=== PATIENT | male | born 1950 | race Caucasian/White ===

== ENCOUNTER → 2018-01-01 | Outpatient (CLI) | payer OTHER, BC | END | disposition home or self-care (01) | LOC: C.PATHSPEC 18:04 | PROVIDERS: ATTEND Urology | DX: R97.20 Elevated prostate specific antigen [PSA] (principal) ==

== ENCOUNTER 2019-05-01 05:01 | Inpatient (IN) ==
--- NOTE | 2019-04-14 14:36 | PAT Medication Instructions ---
Medication Instructions Date of Service April 14, 2019 Home Medications aspirin [Aspirin Low Dose] 81 mg PO BID cholecalciferol (vitamin D3) [Vitamin D3] 1,000 unit PO DAILY fluticasone furoate-vilanterol [Breo Ellipta] 1 inh INHALATION DAILY irbesartan 150 mg PO QAM omega 2-olr-osv-fish oil [Fish Oil] 1 cap PO QAM thyroid (pork) [[place] Thyroid] 15 mg PO QAM thyroid (pork) [[place] Thyroid] 60 mg PO QAM ASK your prescriber and surgeon aspirin [Aspirin Low Dose] 81 mg PO BID STOP taking 2 weeks before surgery (or as soon as possible if surgery is within 2 weeks) omega 0-qno-zxi-fish oil [Fish Oil] 1 cap PO QAM DO NOT take the morning of surgery cholecalciferol (vitamin D3) [Vitamin D3] 1,000 unit PO DAILY irbesartan 150 mg PO QAM Take morning of surgery With a small sip of water, OTHERWISE NOTHING TO EAT OR DRINK AFTER MIDNIGHT: fluticasone furoate-vilanterol [Breo Ellipta] 1 inh INHALATION DAILY thyroid (pork) [[place] Thyroid] 15 mg PO QAM thyroid (pork) [[place] Thyroid] 60 mg PO QAM Other Notes If you have any questions please call us at [phone] or [phone] or [phone] or [phone]
--- NOTE | 2019-04-15 13:23 | Anesthesiology Consultation ---
Date of Service April 15, 2019 Assessment & Plan (1) Encounter for pre-operative examination: Preop EKG done 04/15/19 still unconfirmed at time of review. Will need to review confirmed EKG AM DOS. Chart Review Chart Review: Acceptable Risk for Surgery and Patient seen in Pre Admission Testing Teaching & Discussion Pre-Anesthesia Teaching/Discussion Notes: Instructed NPO after midnight before surgery,except medications with 15 cc of water. Medication instructions provid ed according to the PAT guidelines. History Surgery Operation Date: 05/01/19 07:30 Proposed Procedures p Robotic Laparoscopic Assisted Radical Retropubic Prostatectomy, Possible Open, Possible Pelvic Lymph Node Dissection, Possible Suprapubic Tube Placement - Humberto Perera II, DO Height/Weight Height: 6 ft 2 in Weight: 93.2 kg Allergies Allergy/AdvReac Type Severity Reaction Status Date / Time No Known Allergies Allergy Unverified 04/08/19 10:26 Medications Home Medications Medication Instructions Recorded Confirmed Last Taken aspirin [Aspirin Low Dose] 81 mg PO BID 04/08/19 04/08/19 Unknown cholecalciferol (vitamin D3) 1,000 unit PO DAILY 04/08/19 04/08/19 Unknown [Vitamin D3] fluticasone furoate-vilanterol 1 inh INHALATION DAILY 04/08/19 04/08/19 Unknown [Breo Ellipta] irbesartan 150 mg PO QAM 04/08/19 04/08/19 Unknown omega 2-cuq-guk-fish oil [Fish Oil] 1 cap PO QAM 04/08/19 04/08/19 Unknown thyroid (pork) [[place] Thyroid] 15 mg PO QAM 04/08/19 04/08/19 Unknown thyroid (pork) [[place] Thyroid] 60 mg PO QAM 04/08/19 04/08/19 Unknown Past Medical History Medical History Anxiety Hypertension Hypothyroidism Prostate cancer Exercise / Class Metabolic Activity II 4-5 Yardwork/Stairs/Walk up hill Past Family History Family History Brother FHx: lung cancer Past Surgical History Surgical History History of arthroscopy BILATERAL KNEES History of cataract surgery BILATERAL History of colonoscopy History of cystoscopy S/P wrist surgery LEFT Past Anesthesia History No Hx of Anesthesia Complications and No Family Hx of Anesthesia Complications History of PONV No Hx of PONV and No Hx of Motion Sickness Social History Smoking Status: Former smoker tobacco type: cigars Do You Dip or Chew Tobacco: No Smoking End Date: QUIT CIGARS 2016; H/O OCCASIONAL CIGARS Hx Alcohol Use: Yes Alcohol type: beer, wine and hard liquor alcohol intake frequency: 0-2 drinks per day (1-2 DRINKS/DAY) Hx Substance Use: Yes (CBD oil prn anxiety (advised to hold AM DOS)) Review of Systems Occasional reflux. Patient denies chest pain, shortness of breath, dyspnea on exertion, cough, wheezing, palpitations. Physical Exam Vital Signs VITALS BP 138/75 P 67 TEMP 97.9 SP02 97%RA RESP 20 PHYSICAL Full neck and c-spine range of motion. Full TMJ range of motion. TMD 3 finger breaths Mallampati Score 3 Dentition: missing molars Lungs: clear throughout to auscultation Cardiac: regular rate and rhythm, I/ systolic murmur Spine: normal Carotid arteries: negative bruit Extremities: no edema Testing Laboratory Results 04/15/19 13:39 04/15/19 13:39 Urine Color Yellow 04/15/19 Unknown Urine Appearance Clear (Clear) 04/15/19 Unknown Urine pH 5.0 (4.5-7.5) 04/15/19 Unknown Ur Specific [place] 1.022 (1.000-1.030) 04/15/19 Unknown Urine Protein Negative (Negative) 04/15/19 Unknown Urine Glucose (UA) Negative (Negative) 04/15/19 Unknown Urine Ketones Negative (Negative) 04/15/19 Unknown Urine Nitrite Negative (Negative) 04/15/19 Unknown Ur Leukocyte Esterase Negative (Negative) 04/15/19 Unknown Blood Type A Positive 04/15/19 13:39 Antibody Screen NEGATIVE 04/15/19 13:39 04/15/19 Unknown Urine Culture - Preliminary Urine,Clean Catch No growth - Less than 1,000 colonies/mL, Final report to follow. Electrocardiogram Date: 04/15/19 SB at 59bpm. Moderate voltage criteria for LVH, may be normal variant (unconfirmed) Chest X-Ray Date: 04/15/19 Findings: + NAD
--- NOTE | 2019-04-15 14:28 | XRay Report ---
XR chest Pre-admission PA/Lat CLINICAL HISTORY: Preoperative evaluation. COMPARISON STUDY: No previous studies for comparison. FINDINGS: Lung volumes are normal. Lungs are clear. There is no pneumothorax or pleural effusion. Car diac size is normal. Mediastinal contours are normal. There is no evidence for pulmonary edema. IMPRESSION: No acute cardiopulmonary findings. Electronically signed by: Alexis Arias M.D. 04/15/2019 2:26 PM
[2019-04-15 15:37] LABS: Basophils # (auto) 0.05 K/uL (0-0.2); Basophils % (auto) 1.2 %; Eosinophils # (auto) 0.12 K/uL (0-0.5); Eosinophils % (auto) 2.9 %; Hematocrit (blood only) 42.4 % (42-52); Hemoglobin 14.8 g/dL (14.0-18.0); Immature Granulocytes # (auto) 0.01 K/uL (0.00-0.02); Immature Granulocytes % (auto) 0.2 %; Lymphocytes # (auto) 1.04 K/uL (1.2-3.4); Lymphocytes % (auto) 24.9 %; Mean Corpuscular Hgb Conc 34.9 g/dL (32-36); Mean Corpuscular Volume 91.8 fL (80-100); Mean Platelet Volume 11.7 fL (7.4-10.4); Monocytes # (auto) 0.51 K/uL (0.11-0.59); Monocytes % (auto) 12.2 %; Neutrophils # (auto) 2.45 K/uL (1.4-6.5); Neutrophils % (auto) 58.6 %; Platelet Count 157 K/uL (130-400); RDW Coefficient of Variation 12.8 % (11.5-14.5); RDW Standard Deviation 42.6 fL (36.4-46.3); Red Blood Count 4.62 M/uL (4.7-6.1); White Blood Count 4.18 K/uL (4.8-10.8)
[2019-04-15 15:45] LABS: Appearance Urine Clear (Clear); Bilirubin Urine Negative (Negative); Blood Urine Negative (Negative); Color Urine Yellow; Glucose Urine UA Negative (Negative); Ketones Urine Negative (Negative); Leukocyte Esterase Urine Negative (Negative); Nitrite Urine Negative (Negative); Protein Urine Negative (Negative); Specific Gravity Urine 1.022 (1.000-1.030); Urobilinogen Urine Negative (Negative)
[2019-04-15 15:50] LABS: BUN Creatinine Ratio 18.1 (10-20); Calcium 9.3 mg/dl (8.5-10.1); Creatinine Clr Calc Pharmacy 86.5 ml/min; Est GFR (African American) 94.9; Est GFR (Non-African American) 81.9; Potassium 3.9 mmol/L (3.5-5.1)
[2019-05-01] MEDS ORDERED: LR 15ML/HR IV SCH ×2 (06:00)
[2019-05-01] MEDS ORDERED: CEFAZOLIN 2000MG 2,000 MG/15 ML SYR IV SCH (06:00)
[2019-05-01] MEDS ORDERED: HEPARIN SOD 5,000 UNIT/0.5 ML VIAL SQ SCH (06:00)
[2019-05-01] MEDS ORDERED: LR 500ML BOLUS IV SCH (06:00)
[2019-05-01] MEDS ORDERED: fentaNYL citrate 100 MCG/2 ML VIAL ONE (06:50)
[2019-05-01] MEDS ORDERED: MIDAZOLAM HCL 1 MG/ML 2ML VIAL ONE (06:50)
[2019-05-01] MEDS ORDERED: PROPOFOL IV EMULSION 10 MG/ML 20 ML VIAL IV ONE (06:50)
[2019-05-01] MEDS ORDERED: DEXAMETHASONE SOD INJ 4 MG/ML VIAL ONE (06:50)
[2019-05-01] MEDS ORDERED: ONDANSETRON INJ 2 MG/ML 2 ML VIAL ONE (06:50)
[2019-05-01] MEDS ORDERED: LIDOCAINE HCL 2% 2 ML VIAL/AMP(20MG/ML) INFIL ONE (06:50)
[2019-05-01] MEDS ORDERED: GLYCOPYRROLATE 0.2 MG/ML VIAL ONE (06:50)
[2019-05-01] MEDS ORDERED: ROCURONIUM BROMIDE 10 MG/ML 5 ML VIAL ONE (06:50)
[2019-05-01] MEDS ORDERED: NEOSTIGMINE METHYLSULFATE 5 MG/5 ML SYR ONE (06:50)
--- NOTE | 2019-05-01 06:59 | History & Physical Bridge Note ---
Date of Service May 01, 2019 History & Physical Bridge Note I have examined the patient, reviewed the History & Physical and in the interval since the performance of the History & Physical I have noted the following changes of clinical significance: no changes noted
[2019-05-01] MEDS ORDERED: BUPIVACAINE 0.5 % 5 MG/1 ML MPF 30ML VIAL ONE (07:13)
[2019-05-01] MEDS ORDERED: ePHEDrine sulfate 50 MG/ML AMP IV PRN (07:33)
[2019-05-01] MEDS ORDERED: ATROPINE SULFATE 0.1 MG/ML 10ML SYR IV PRN (07:33)
[2019-05-01] MEDS ORDERED: HYDROmorphone INJ 2 MG/ML SYR/VIAL IV PRN (07:33)
[2019-05-01] MEDS ORDERED: ePHEDrine sulfate 50 MG/ML SYR ONE (08:24)
[2019-05-01] MEDS ORDERED: SURGICEL ABSORB HEMOSTAT 2IN X 14IN TOP ONE (10:09)
[2019-05-01] MEDS ORDERED: KETOROLAC 30 MG/ML VIAL ONE (11:01)
--- NOTE | 2019-05-01 11:54 | Operative Report ---
Post Operative Report Pre & Post Diagnosis Operation Date: 05/01/19 07:30 Pre-Op Diagnosis: Prostatic Cancer Post-Op Diagnosis: Prostatic Cancer Procedure Operation Date: 05/01/19 07:30 Actual Procedures p Robotic Laparoscopic Assisted Radical Nerve Sparing Retropubic Prostatectomy - Humberto Perera II, DO Surgeon Humberto Perera II, DO [employer] Jocy HU Estimated Blood Loss 20 Findings Consistent with Post-Op Diagnosis Specimens Radical Prostate with vas segment and seminal vesicles Drains 18 Fr Silicon Catheter Anesthesia Type General Complications none Disposition Disposition: Recovery Room Indications Patient with 3+3 Prostate cancer in 3 cores. Decided to proceed with radical prostatectomy. Risks and benefits were discussed at length. Description of Procedure The patient was brought to the operative suite and placed under general endotracheal intubation anesthesia in the supine position. The patient was transferred to the dorsal lithotomy position. At this point, the patient prepped and draped in the usual sterile fashion and a timeout was completed. The correct procedure and patient were identified. Preoperative antibiotics of Ancef 2 grams had been given. LAUREN's and SCD's were placed on the patient's lower extremities. A catheter was placed using sterile technique. With the time out completed the patient was placed into Trendelenburg and the skin at the umbilicus was anesthetized. A small incision was made superior to the umbilicus. A Varess needle was placed and was aspirated and irrigated and found to have correct drop of fluid. The insufflation was attached and the abdomen was filled to 15mmhg. The robotic camera port was placed, followed by the camera, and then the abdominal cavity inspected. No concerning features were noted. At this point, the skin was marked for port placement and 8mm working ports were placed. The skin was anesthetized down to fascia and an approx 1cm incision was made to place the 3 x 8mm ports. A 10mm and 5 mm commercial lines account assistant ports were also placed in similar fashion under direct visualization. The patient was transferred into steep Trendelenburg position and the legs lowered. The robot was positioned and docked. The camera was placed and all trocars were positioned under direct visualization. MAYTE Husain was integral in port placement, camera utilization, and docking procedure. She remained in sterile attire and then proceeded to assist the remainder of the case. At this point, I transitioned to the robotic console. At this point, the sigmoid colon was mobilized superiorly and the pelvis assessed. Adhesions were freed to allow mobilization. Significant adhesions were noted from the colon to the side wall. The peritoneum in the midline was opened between rectum and bladder and the seminal vesicles exposed. These were dissected with blunt technique. The vas was clipped and cut and mobilized. Cautery was used to assist dissection avoiding the tissue posteriorly near the rectum. The lateral vesicles were clipped with a hemolock and all bleeding controlled. This was taken as inferior as possible from this position. The medial umbilical ligaments were then identified and the peritoneum directly lateral on the right followed by the left was opened. The tissues were bluntly dissected to free the bladder's lateral attachments. This was taken down to the pubic bone and exposed the endopelvic fascia bilaterally. The medial ligaments were cut and the bladder dropped. The tissues was dissected anterior to the prostate. The endopelvic fascia on each side was then opened and the lateral edges of the prostate dissected. The Dorsal venous complex of the prostate was dissected and assessed. A 2-0 PDS suture was used to ligate the vessels. A suspension stitch was used and clipped. Electrocautery was used to cut the anterior attachments, the puboprostatic ligaments, and venous tissues. The barraza was manipulated to better visual the bladder neck and dissection was taken using electrocautery. The bladder neck was opened and dissected from the prostate. The UO were identifed and dissection taken in a direction to avoid each side. The vas stump and seminal vesicles were exposed and used to assist in traction to dissect. The prostatic pedicles were better exposed. The posterior prostate was dissected. An attempt was made to limit cautery and utilize cold dissection of the lateral posterior prostate to attempt preservation of the neurovascular bundle bilaterally. Hemolock clips were utilized to clip the prostatic pedicle bilaterally. The dissection was taken to the apex of the prostate. The anterior prostate was released and the urethra exposed. Cold cutting was used to open the anterior portion and expose the catheter. This was removed and the urethra incised. The prostate was further freed and grasped and removed from the field. The entire dissection bed was inspected.Hemostatic agent Surgicel sheets were placed in the region. No areas of injury or bleeding was noted. Care was taken to examine the perirectal tissues. A probe was placed and no injuries or other issues were observed. The bladder neck and urethra were then approximated with a running barbed suture starting at the 5 o'clock position and moving to the 12 o'clock on each side. This was tied at the anterior portion. A leak test was completed without any evidence of issues. The entire dissection space was inspected one final time. No bleeding or injuries or areas of concern were noted. No tumor or other concerning features were noted. At this point, the robot was undocked and moved away from the patient. The patient was taken out of Trendelenberg. The port sites were all assessed laparoscopically. The endoscopic bag was moved into the midline port. The 10mm port site was closed with the Magdy Fong device. The other ports were assessed and no issues observed. The umbilical incision was opened further exposing fascia which was then opened in order to removed the prostate in the bag. The prostate was removed. A running PDS suture was used to close fascia. The skin at each site was closed with a running Monocryl suture. The area was cleaned and glue placed on each incision. The patient was cleaned and bandaged. The barraza was attached to drainage. The patient was further cleaned, aroused from anesthesia, and transferred to the pacu in stable condition having tolerated the procedure well with no complications. I was present and participated in all aspects of the procedure. MAYTE Husain was critical in the portions as mentioned above. She first assisted through the entire case. I attest to the content of the Intraoperative Record and any orders documented therein. Any exceptions are noted below.
[2019-05-01 12:14] LABS: Basophils # (auto) 0.01 K/uL (0-0.2); Basophils % (auto) 0.1 %; Eosinophils # (auto) 0.04 K/uL (0-0.5); Eosinophils % (auto) 0.4 %; Hemoglobin 13.5 g/dL (14.0-18.0); Immature Granulocytes # (auto) 0.03 K/uL (0.00-0.02); Immature Granulocytes % (auto) 0.3 %; Lymphocytes # (auto) 0.45 K/uL (1.2-3.4); Lymphocytes % (auto) 4.5 %; Mean Corpuscular Volume 93.5 fL (80-100); Mean Platelet Volume 10.7 fL (7.4-10.4); Monocytes # (auto) 0.17 K/uL (0.11-0.59); Monocytes % (auto) 1.7 %; Neutrophils # (auto) 9.26 K/uL (1.4-6.5); Platelet Count 130 K/uL (130-400); RDW Coefficient of Variation 12.9 % (11.5-14.5); RDW Standard Deviation 43.8 fL (36.4-46.3); Red Blood Count 4.28 M/uL (4.7-6.1); White Blood Count 9.96 K/uL (4.8-10.8)
[2019-05-01 12:26] LABS: Mean Corpuscular Hgb Conc 33.8 g/dL (32-36)
[2019-05-01 12:35] LABS: Creatinine Clr Calc Pharmacy 54.2 ml/min; Est GFR (African American) 52.1; Potassium 4.3 mmol/L (3.5-5.1)
[2019-05-01 12:36] LABS: BUN Creatinine Ratio 12.7 (10-20)
[2019-05-01 12:37] LABS: Calcium 8.6 mg/dl (8.5-10.1)
--- NOTE | 2019-05-01 13:24 | Anesthesiology Progress Note ---
Date of Service May 01, 2019 Anesthesia Post Procedure Vital Signs Vital Signs: Temp Pulse Pulse Resp BP Pulse Ox 05/01/19 15:23 36.5 C 88 18 121/67 95 05/01/19 14:20 92 H 17 159/91 H 97 05/01/19 13:55 36.8 C 79 17 136/87 94 05/01/19 13:20 36.3 C L 85 16 161/82 H 96 05/01/19 13:05 36.2 C L 88 18 158/87 H 96 05/01/19 12:55 86 20 160/86 H 95 05/01/19 12:45 76 18 136/74 100 05/01/19 12:35 67 16 121/63 98 05/01/19 12:25 71 16 143/87 H 97 05/01/19 12:15 73 16 142/83 H 100 05/01/19 12:05 76 16 156/94 H 100 05/01/19 11:56 36.0 C L 76 16 151/81 H 100 05/01/19 05:43 36.8 C 65 18 161/101 H 97 Transfer of Care Handoff Completed per policy Notes Mental Status: alert / awake / arousable Patient Amnestic to Procedure: Yes Nausea / Vomiting: adequately controlled Pain: adequately controlled Airway Patency, RR, SpO2: stable & adequate BP & HR: stable & adequate Hydration State: stable & adequate Anesthetic Complications: no major complications apparent and Pt Satisfied with anesthetic care
[2019-05-01] MEDS ORDERED: OXYCODONE HCL IR 5 MG TAB (IMMEDIATE RELEASE) PO PRN ×2 (13:48)
[2019-05-01] MEDS ORDERED: ONDANSETRON INJ 2 MG/ML 2 ML VIAL IV PRN (13:48)
[2019-05-01] MEDS ORDERED: MoRPHine SULFATE 4 MG/ML 1 ML CARP\\VIAL IV PRN (13:48)
[2019-05-01] MEDS ORDERED: ACETAMINOPHEN 1,000 MG/100 ML VIAL IV PRN (13:48)
[2019-05-01 14:49] LABS: INR 1.1 (0.9-1.1); Prothrombin Time 10.9 Seconds (9.0-12.0)
--- NOTE | 2019-05-01 16:41 | Anesthesia Procedure Note ---
Date of Service May 01, 2019 Anesthesia Post Epidural Note Vital Signs Vital Signs: Temp Pulse Resp BP Pulse Ox 36.5 C 88 18 121/67 95 05/01/19 15:23 05/01/19 15:23 05/01/19 15:23 05/01/19 15:23 05/01/19 15:23 Notes Mental Status: alert / awake / arousable Patient Amnestic to Procedure: Yes Nausea / Vomiting: adequately controlled Pain: adequately controlled Airway Patency, RR, SpO2: stable & adequate BP & HR: stable & adequate Hydration State: stable & adequate Anesthetic Complications: no major complications apparent and Pt Satisfied with anesthetic care
[2019-05-01] MEDS: LACTATED RINGER'S 1,000 ML IV SCH (17:26)
[2019-05-01] MEDS: CEFAZOLIN 2000MG 2,000 MG/15 ML SYR IV SCH (18:25)
[2019-05-01] MEDS: DOCUSATE SODIUM 100 MG CAP PO SCH (21:06)
[2019-05-01] MEDS: HEPARIN SOD 5,000 UNIT/0.5 ML VIAL SQ SCH (21:06)
[2019-05-01] MEDS: FAMOTIDINE 20 MG in SYRINGE 3 ML IV SCH (21:07)
[2019-05-02] MEDS: CEFAZOLIN 2000MG 2,000 MG/15 ML SYR IV SCH ×2 (00:33→12:06)
[2019-05-02] MEDS: LACTATED RINGER'S 1,000 ML IV SCH ×2 (03:13→12:15)
[2019-05-02 07:47] LABS: Basophils # (auto) 0.01 K/uL (0-0.2); Basophils % (auto) 0.1 %; Eosinophils # (auto) 0.01 K/uL (0-0.5); Eosinophils % (auto) 0.1 %; Hematocrit (blood only) 35.2 % (42-52); Immature Granulocytes # (auto) 0.01 K/uL (0.00-0.02); Immature Granulocytes % (auto) 0.1 %; Lymphocytes # (auto) 0.86 K/uL (1.2-3.4); Lymphocytes % (auto) 10.6 %; Mean Corpuscular Hgb Conc 34.1 g/dL (32-36); Mean Corpuscular Volume 92.6 fL (80-100); Mean Platelet Volume 11.2 fL (7.4-10.4); Monocytes # (auto) 0.79 K/uL (0.11-0.59); Monocytes % (auto) 9.7 %; Neutrophils # (auto) 6.44 K/uL (1.4-6.5); Neutrophils % (auto) 79.4 %; Platelet Count 139 K/uL (130-400); RDW Standard Deviation 43.9 fL (36.4-46.3); White Blood Count 8.12 K/uL (4.8-10.8)
[2019-05-02 08:15] LABS: BUN Creatinine Ratio 13.4 (10-20); Calcium 8.8 mg/dl (8.5-10.1); Creatinine Clr Calc Pharmacy 70.4 ml/min; Est GFR (African American) 71.6; Est GFR (Non-African American) 61.8; Potassium 4.2 mmol/L (3.5-5.1)
--- NOTE | 2019-05-02 08:39 | Urology Progress Note ---
Date of Service May 02, 2019 Assessment & Plan (1) Cancer of prostate w/low recurrence risk (T1-2a, [place]<7 & PSA<10): POD #1 s/p RALP. Feeling well overall. Surgical pain well controlled, gas pain somewhat bothersome. Continue Pepcid, Colace. Ambulation encouraged. Will consider advancing diet to mechanical soft with continued improvement. Likely okay for discharge this evening vs. tomorrow AM pending he continues to improve. Subjective 68 YO M POD #1 s/p RALP. Patient reports some gas pain overnight, improved by walking in the halls. Has been passing flatus and moved bowels liquid x 1 overnight. Gas pain has improved somewhat this morning. Still burping and passing flatus. No nausea or vomiting. No fevers/chills. Mills not bothersome. Review of Systems Review of Systems: All systems reviewed & are unremarkable except as noted in HPI & below Physical Exam Physical Exam: WN/WD NAD. Resp effort normal. No JVD. Abd soft/nontender/nondistended. Incisions well approximated, surgical glue intact. : bladder nontender, nondistended. Mills patent draining yellow urine with rare clot. A&Ox3, appropriate affect. Results & Data Vital Signs (Past 12 Hours) Vital Signs Temp Pulse Pulse Resp BP BP Pulse Ox 05/02/19 07:59 37.0 C 80 18 160/100 H 98 05/02/19 03:00 36.9 C 82 16 119/75 98 05/01/19 23:17 36.9 C 76 16 118/70 97
[2019-05-02] MEDS ORDERED: VILANTEROL INH SCH (09:00)
[2019-05-02] MEDS ORDERED: FLUTICASONE INH SCH (09:00)
[2019-05-02] MEDS ORDERED: IRBESARTAN 150 MG TAB PO SCH (09:00)
[2019-05-02] MEDS ORDERED: ARMOUR THYROID 30 MG TAB PO SCH ×2 (09:00)
--- NOTE | 2019-05-02 09:16 | Anesthesiology Progress Note ---
Date of Service May 02, 2019 Anesthesia Post Procedure Vital Signs Vital Signs: Temp Pulse Pulse Resp BP BP Pulse Ox 05/02/19 07:59 37.0 C 80 18 160/100 H 98 05/02/19 03:00 36.9 C 82 16 119/75 98 05/01/19 23:17 36.9 C 76 16 118/70 97 05/01/19 19:04 36.8 C 83 18 139/78 97 05/01/19 16:43 36.7 C 90 18 113/68 95 05/01/19 15:23 36.5 C 88 18 121/67 95 05/01/19 14:20 92 H 17 159/91 H 97 05/01/19 13:55 36.8 C 79 17 136/87 94 05/01/19 13:20 36.3 C L 85 16 161/82 H 96 05/01/19 13:05 36.2 C L 88 18 158/87 H 96 05/01/19 12:55 86 20 160/86 H 95 05/01/19 12:45 76 18 136/74 100 05/01/19 12:35 67 16 121/63 98 05/01/19 12:25 71 16 143/87 H 97 05/01/19 12:15 73 16 142/83 H 100 05/01/19 12:05 76 16 156/94 H 100 05/01/19 11:56 36.0 C L 76 16 151/81 H 100 Notes Mental Status: alert / awake / arousable and participated in evaluation Nausea / Vomiting: adequately controlled Pain: adequately controlled Airway Patency, RR, SpO2: stable & adequate BP & HR: stable & adequate Hydration State: stable & adequate
[2019-05-02] MEDS: FAMOTIDINE 20 MG in SYRINGE 3 ML IV SCH (11:00)
[2019-05-02] MEDS: DOCUSATE SODIUM 100 MG CAP PO SCH (11:01)
[2019-05-02] MEDS: HEPARIN SOD 5,000 UNIT/0.5 ML VIAL SQ SCH (11:20)
--- NOTE | 2019-05-22 07:29 | Discharge Summary ---
Date of Service May 22, 2019 Admission HPI Per Admitting Provider See HPI from Admission History and Physical Admission Exam Per Admitting Provider See Admission H&P Principal Diagnosis Prostate Cancer Discharge Exam ENMT Mouth: no TMJ abnormality Mallampati Class: I Neck normal visual inspection Respiratory normal respiratory effort Auscultation: lungs clear to auscultation bilaterally Cardiovascular Rate/Rhythm: regular rate and regular rhythm Heart Sounds: no murmur Neurologic moves all extremities Psychiatric Orientation: alert and oriented x 3 Discharge Data Allergies Allergy/AdvReac Type Severity Reaction Status Date / Time No Known Allergies Allergy Unverified 05/15/19 10:40 Procedures Performed Operation Date: 05/01/19 07:30 Actual Procedures p Robotic Laparoscopic Assisted Radical Retropubic Prostatectomy - Humberto Perera II, DO Hospital Course (1) Cancer of prostate w/low recurrence risk (T1-2a, [place]<7 & PSA<10): POD #1 s/p RALP. Feeling well overall. Surgical pain well controlled, gas pain somewhat bothersome. Continue Pepcid, Colace. Ambulation encouraged. Will consider advancing diet to mechanical soft with continued improvement. Likely okay for discharge this evening vs. tomorrow AM pending he continues to improve. Was discharge POD1 having done well without issues or complications. Total Time Total Time Spent Total Time Spent (In Minutes): 10 Total Time Includes: Examination of the Patient, Discharge Planning, Medication Reconciliation, Communication With Other Providers and Other Discharge Plan Discharge Items Patient Disposition: Home - Self-Care Reason For Visit: Prostatic Cancer Discharge Diagnosis: Same Discharge Goals: Decrease discomfort and Increase independence Activity: Resume your previous activity Lifting: No more than 25 pounds Bathing: Keep incision dry Exercise/Sports: None Non-emergency contact: Urologist Call non-emergency contact if: you have any medication questions, your symptoms worsen, your pain is worsening, your pain is unusual for you, your pain is concerning for you, you have a fever, your temperature is above 101.5, your wound has increased redness, your wound has increased drainage and your wound pain has increased Follow-up/Referrals: Gilberto Simon [Primary Care Provider] - Diet: Regular Addtl Provider Instructions: Avoid heavy lifting and overactivity. Avoid lifting / spreading legs. Maintain catheter until followup. May have blood in urine. Okay to use pain meds as needed. Avoid heavy meals. May have some constipation issues. Okay to take miralax or colace as needed. Prescriptions: Continued sildenafil 100 mg tablet 100 mg PO .COMPLEX RF: 0 tamsulosin 0.4 mg capsule 0.4 mg PO DAILY RF: 0 aspirin [Aspirin Low Dose] 81 mg Tablet,Delayed Release (Dr/Ec) 81 mg PO BID RF: 0 irbesartan 150 mg Tablet 150 mg PO QAM RF: 0 thyroid (pork) [[place] Thyroid] 15 mg Tablet 15 mg PO QAM RF: 0 thyroid (pork) [[place] Thyroid] 60 mg Tablet 60 mg PO QAM RF: 0 omega 2-drd-lgh-fish oil [Fish Oil] 1,000 mg (120 mg-180 mg) Capsule 1 cap PO QAM RF: 0 Breo Ellipta 100-25 mcg/dose Blister With Device 1 inh INHALATION DAILY RF: 0 cholecalciferol (vitamin D3) [Vitamin D3] 1,000 unit Capsule 1,000 unit PO DAILY RF: 0 Stand-Alone Forms: [facility], [facility]id Pain [facility] Discharge Orders: Discharge Order (Routine); Ordered 05/02/19 Ordered By: Humberto Perera II Admission Data Admit Date/Time: 05/01/19 11:54 Attending Provider: Humberto Perera II Admit Provider: Humberto Perera II Primary Care Provider: Gilberto Simon Service: Surgical Services Other Interventions: Discharge Summary Assessment (RN) Last Done: 05/02/19 19:42 DC Date/Time DO NOT enter until pt leaves facility: 05/02/19 20:26
== END 2019-05-02 20:26 | disposition home or self-care (01) | DRG 707 ==
LOC: ASU 05:01 → 3N 11:54